=== PATIENT | male | born 1995 | race African-American/Black ===

== ENCOUNTER 2018-10-11 16:59 | Emergency (ER) | payer MEDICAID ==
[~2018-10-11] VITALS: Ht 185.4 cm; Wt 136.0 kg
[2018-10-11] MEDS ORDERED: KETOROLAC 60MG/2ML VIAL IM ONE (21:30)
[2018-10-11 22:23] VITALS: BP 124/84
== END 2018-10-11 22:27 | disposition home or self-care (01) ==
LOC: ER 16:59
DX: S83.8X1A Sprain of other specified parts of right knee, initial encounter (principal); X58.XXXA Exposure to other specified factors, initial encounter; Y93.B9 Activity, other involving muscle strengthening exercises; Y92.89 Other specified places as the place of occurrence of the external cause
CPT/HCPCS: 73560; 99283; J1885; L1830; Z7610